=== PATIENT | male | born 1995 | race Caucasian/White ===

== ENCOUNTER 2023-08-28 14:16 | Emergency (ER) | payer MEDICAID ==
[~2023-08-28 14:16] MED LIST: CLIN300C12 PO; CLOT15CR5 TP; IBUP-1955 PO; NALO4SPR BNOSTRILS
== END 2023-08-28 16:03 | disposition left against medical advice (07) ==
LOC: ER 14:16
DX: R50.9 Fever, unspecified (principal); Z53.21 Procedure and treatment not carried out due to patient leaving prior to being seen by health care provider